=== PATIENT | male | born 1960 | race Caucasian/White ===

== ENCOUNTER → 2018-06-04 | Outpatient (CLI) | payer BC, OTHER ==
[~2018-06-04] VITALS: Ht 185.4 cm; Wt 90.7 kg
[~2018-06-04] MED LIST: CIALIS20 MG PO; FISH OIL 1,001000 M2 PO; LIPITOR 20 MG T20 M1 PO; LISINOPRIL-HCT1 EAC1 PO; PRIMIDONE50 MG PO
--- NOTE | ~2018-06-04 | PATH ---
[facility] [address] [place] [address] PATHOLOGY RPT PROCEDURE Name: JEF WYMAN Room #: REG Linnette Moody.#: [id number] Admission: 06/04/18 Date of : 64 Discharge: Report #: [id number] Path Case #: [id number] [facility] Accession Number: [id number] . 01 Material submitted: . RECTAL POLYP . 01 Clinician provided ICD-10: Z12.11 . 01 Clinical history: . Pre-OP DX: Routine screening Post-OP DX: Rectal polyp . 02 Diagnosis: Polyp, rectal polyp, endoscopic biopsy: - Tubular adenoma. - Negative for high grade dysplasia. . (IUV:mml; 06/05/18) QLM/06/05/2018 . 02 Electronically signed: . Mae Manriquez MD, Pathologist NPI- [id number] . 01 Gross description: . Received in formalin labeled "Jef Wyman, rectal polyp," is a single segment of schwartz soft tissue measuring 0.3 cm in maximum dimension. The specimen is entirely submitted in cassette A1. (TSD; 06/04/2018) TOB/TOB . 02 Pathologist provided ICD-10: D12.8 . 02 CPT . 000768 Specimen Comment: A courtesy copy of this report has been sent to Specimen Comment: [phone], . Specimen Comment: Report sent to / DR GARCIA Performed at: [id number] [facility] [address], [place] [id number] MD Gonzalo Awad MD Phone: [phone] Performed at: [address] [address] PATHOLOGY RPT PROCEDURE Name: JEF WYMAN Room #: REG JERE Allen#: [id number] Admission: 06/04/18 Date of : 64 Discharge: Report #: [id number] Path Case #: [id number] [address] [place] [id number] MD Mae Manriquez MD Phone: [phone]
== END | disposition home or self-care (01) ==
LOC: GI 08:24
DX: Z12.11 Encounter for screening for malignant neoplasm of colon (principal); D12.8 Benign neoplasm of rectum; K64.8 Other hemorrhoids; I10 Essential (primary) hypertension; E78.5 Hyperlipidemia, unspecified; Z87.891 Personal history of nicotine dependence; Z98.890 Other specified postprocedural states; Z90.89 Acquired absence of other organs; Z79.899 Other long term (current) drug therapy
CPT/HCPCS: 62110; 62900